=== PATIENT | female | born 1965 | race Caucasian/White ===

== ENCOUNTER 2025-09-06 05:37 | Emergency (ER) | payer OTHER, SELFPAY ==
--- NOTE | 2025-09-06 05:39 | EKG_ITS ---
[facility] Test Date: 2025-09-06 Pat Name: JEREMIAH GREY Department: Room: - Gender: Female Certified Physical Therapist Assistant: : [id number] Requested By: ED Temporary Provider Order Number: [id number] Reading MD: ED Temporary Provider Measurements Intervals [place] Rate: 75 P: 61 ND: 176 QRS: 30 QRSD: 81 T: 39 QT: 372 QTc: 417 Interpretive Statements SINUS RHYTHM No previous ECG available for comparison /store/S0/[id number].pdf
[2025-09-06 05:45] VITALS: BP 106/67; PULSE 80; RESP 16; TEMP 36.5; O2SAT 99
[2025-09-06 05:46] VITALS: BMI 26.6
--- NOTE | 2025-09-06 06:24 | PD.EDSYNC ---
ED Syncope RME/HPI General Chief Complaint: General Adult/Misc Complain Stated Complaint: LOW BP, PASSED OUT Time Seen by Provider: 09/06/25 06:13 Source: patient Arrival date/time: 09/06/25 05:37 60 year old female with no known medical history presents to the emergency room with a chief complaint of a near syncopal episode that occured last night. patient states she felt like passing out while in the restroom. patient states she took her BP afterwards and it was in the 80's systolic. Mode of arrival: ambulatory Limitations: no limitations Related Data Allergies Allergy/AdvReac Type Severity Reaction Status Date / Time No Known Allergies Allergy Verified 09/06/25 05:38 Review of Systems Review of Systems Systems Reviewed: All systems reviewed, normal except as documented Constitutional Constitutional: Reports system reviewed and no additional complaints, except as documented, Denies fatigue, Denies fever(s), Denies headache(s) and Denies weakness Eyes Eyes: Reports system reviewed and no additional complaints, except as documented, Denies blurry vision and Denies change in vision ENT Ears, Nose, Mouth, and Throat: Reports system reviewed and no additional complaints, except as documented, Denies otalgia, Denies headache(s), Denies nasal congestion, Denies throat swelling and Denies vertigo Cardiovascular Cardiovascular: Reports system reviewed and no additional complaints, except as documented, Denies chest pain, Denies dyspnea, Denies dyspnea on exertion, Denies lightheadedness, Denies orthopnea, Denies palpitations, Denies paroxysmal nocturnal dyspnea, Denies rapid heart rate and Denies slow heart rate Respiratory Respiratory: Reports system reviewed and no additional complaints, except as documented, Denies chest congestion, Denies cough, Denies dyspnea, Denies dyspnea on exertion and Denies wheezing Gastrointestinal Gastrointestinal: Reports system reviewed and no additional complaints, except as documented, Denies abdominal pain, Denies cramping, Denies nausea and Denies vomiting Genitourinary Genitourinary: Reports system reviewed and no additional complaints, except as documented Musculoskeletal Musculoskeletal: Reports system reviewed and no additional complaints, except as documented and Denies back pain Integumentary/Breasts Skin/Breast: Reports system reviewed and no additional complaints, except as documented and Denies wounds Neurologic Neurologic: Reports system reviewed and no additional complaints, except as documented, Denies confusion, Denies headache(s), Denies lack of coordination, Denies vertigo and Denies weakness Psychiatric Psychiatric: Reports system reviewed and no additional complaints, except as documented, Denies anxiety, Denies confusion, Denies depression, Denies paranoia, Denies suicidal ideation and Denies tactile hallucinations Endocrine Endocrine: Reports system reviewed and no additional complaints, except as documented, Denies fatigue and Denies palpitations Hematologic/Lymphatic Hematologic/Lymphatic: Reports system reviewed and no additional complaints, except as documented and Denies lymphadenopathy Allergic/Immunologic Allergic/Immunologic: Reports system reviewed and no additional complaints, except as documented, Denies throat swelling, Denies urticaria and Denies wheezing ED Exam General Limitations: Present no limitations General appearance: Present alert and in no apparent distress Head Head exam: Present atraumatic Eye Eye exam: Present normal appearance, PERRL and EOMI ENT ENT exam: Present normal exam, normal oropharynx and mucous membranes moist Neck Neck exam: Present normal inspection, full ROM and trachea midline Chest Chest inspection: Present normal inspection and symmetric chest wall rise Respiratory Respiratory exam: Present normal lung sounds bilaterally; Absent respiratory distress, wheezes, stridor, accessory muscle use or prolonged expiratory phase Cardiovascular Cardiovascular exam: Present regular rate, normal rhythm, normal heart sounds and +S2; Absent bradycardia, tachycardia, irregular rhythm, systolic murmur, diastolic murmur, rubs, gallop, clicks or JVD Abdominal Exam Abdominal exam: Present soft and normal bowel sounds; Absent tenderness Extremities Exam Extremities exam: Present normal inspection and full ROM Back Exam Back exam: Present normal inspection and full ROM Neurological Exam Neurological exam: Present alert, oriented X3 and CN II-XII intact Psychiatric Psychiatric exam: Present normal affect and normal mood Skin Skin exam: Present warm, dry, intact and normal color Course Quality Measures none Orders Category Date Time Status EKG (ED ONLY) *Do not use* NOW Care 09/06/25 05:39 Completed Orthostatic Vitals X1 Care 09/06/25 06:23 Active EKG (ED Only) Stat Exams 09/06/25 05:39 Draft B-Type Natriuretic Peptide Stat Lab 09/06/25 06:49 Completed CBC Stat Lab 09/06/25 06:49 Completed Comprehensive Metabolic Panel Stat Lab 09/06/25 06:44 Completed Drug Screen,Urine Stat Lab 09/06/25 07:16 Completed Free T3 Stat Lab 09/06/25 06:49 Completed Free T4 (Free Thyroxine) Stat Lab 09/06/25 06:44 Completed Magnesium Stat Lab 09/06/25 06:44 Completed Partial Thromboplastin Time Stat Lab 09/06/25 06:44 Completed Prothrombin Time with INR Stat Lab 09/06/25 06:44 Completed TSH [Thyroid Stimulating Hormone] Stat Lab 09/06/25 06:44 Completed Troponin I Stat Lab 09/06/25 06:44 Completed Urinalysis, C/S if Indicated Stat Lab 09/06/25 07:16 Completed Vital Signs Vital signs: Vital Signs Temperature 97.7 F 09/06/25 05:45 Pulse Rate 80 09/06/25 05:45 Respiratory Rate 16 09/06/25 05:45 Blood Pressure 106/67 09/06/25 05:45 Pulse Oximetry (%) 99 09/06/25 05:45 Oxygen Delivery Method Room Air 09/06/25 05:45 Syncope MDM Narrative MDM Narrative:: 60 year old female with no known medical history presents to the emergency room with a chief complaint of a near syncopal episode that occured last night. patient states she felt like passing out while in the restroom. patient states she took her BP afterwards and it was in the 80's systolic. Patient is hemodynamically stable and in no apparent distress. There is no tachycardia no tachypnea. Orthostatic vital signs were completed and were within normal limits. Physical examination shows a strong and regular rhythm S1 and S2 noted no clicks no murmurs no JVD. The patient has clear bilateral lung sounds. There is no lower extremity edema. CBC CMP were within normal limits. TSH free T4 were abnormal and showed subclinical hyperthyroidism. Patient states she is taking levothyroxine. Patient was educated to follow-up with her primary care provider for further management of her hyperthyroidism. EKG shows normal sinus rhythm at [address] deviation. Troponin and BNP were within normal limits Patient was discharged and educated to follow-up with primary care provider in the next 24 to 48 hours and return to the emergency room for any evidence of worsening signs or symptoms Patient data External records reviewed:: [facility] previous records Clinical information provided by:: patient Social determinants that could affect healthcare access:: none Patient has the following chronic illnesses:: No chronic illness How is presenting disease/condition affected by chronic disease/condition?: no chronic disease Evaluation data The following diagnostics were reviewed and interpreted by me:: lab results and radiology exam(s) Lab and/or radiology exams considered but not ordered:: Labs and radiology exams considered and ordered Interpretation Summary: N/A Medications / Prescriptions Medications or Prescriptions considered but not ordered:: N/A Medication administrations:: N/A Consultations Consultation(s) initiated? (list below): No Diagnosis Syncope Differential Diagnosis: syncope due to orthostatic hypotension, vasovagal syncope, dehydration and other (Subclinical hyperthyroidism) Most likely diagnosis given after review of the tests above:: Subclinical hypothyroidism Admission Indicated Admission indicated?: not indicated Admission Request Was there a request for admission?: No Disposition Plan Disposition Plan: Discharge Discharge Attestation Discharge Attestation: The patient and all family members were given an opportunity to ask questions and understood the discharge instructions. Discharge instructions specifically effects, indications for sooner follow up or return to the emergency department, and the expected course of current diagnosis. Patient condition: Stable Discharge Plan Plan Patient Disposition: HOME (Self Care) Discharge Disposition comment: Stable Prescriptions/Referrals Referrals: Nikki Ross NP [Primary Care Provider] - In 1 week Problem List Clinical Impression: Subclinical hyperthyroidism Patient/Caregiver Discharge Instructions Education Materials: ED Hyperthyroidism Additional Instructions: Please follow-up with your primary care provider in the next 24 to 48 hours The cause of your symptoms is due to your thyroid function. You have an overactive thyroid. You will need to follow-up with your primary care provider as a referral to an mortgage loan counselor may be indicated to start you on medication. For any evidence of worsening signs or symptoms return to the emergency room immediately Print Language: Japanese Stand Alone Forms: Nia Award Info., Work/School Release, Patient Portal Info Letter SARY/MACY Supervising Physician SARY/MACY Supervising Physician: Dr. Whitman
[2025-09-06 06:48] VITALS: BP 120/75; BP 121/69; BP 124/76; PULSE 69; PULSE 70
[2025-09-06 06:59] LABS: Basophils # (Auto) 0.1 Thou/mm3 (0.0-0.2); Basophils % (Auto) 1 % (0-2.5); Eosinophils # (Auto) 0.1 Thou/mm3 (0.0-0.5); Eosinophils % (Auto) 1 % (0-10); Hematocrit 44.1 % (36.0-46.0); Hemoglobin 14.5 g/dL (12.0-16.0); Immature Granulocytes Auto 0.02 Thou/mm3 (0.00-0.00); Lymphocytes # (Auto) 2.7 Thou/mm3 (1.0-4.8); Lymphocytes % (Auto) 22 % (10-50); Mean Corpuscular HGB Conc 32.9 g/dl (31.0-37.0); Mean Corpuscular Hemoglobin 30.2 pg (25.0-35.0); Mean Corpuscular Volume 92 fL (80-100); Monocytes # (Auto) 1.2 Thou/mm3 (0.0-0.8); Monocytes % (Auto) 10 % (0-12); Neutrophils # (Auto) 7.9 Thou/mm3 (1.8-7.7); Neutrophils % (Auto) 66 % (37-80); Nucleated Red Blood Cell # 0.00 Thou/mm3 (0.00-0.00); Nucleated Red Blood Cell % 0 /100 WBC (0); Platelet Count 355 Thou/mm3 (140-440); RDW Standard Deviation 45.1 fL (36.4-46.3); Red Blood Count 4.80 Miln/mm3 (4.00-5.20); White Blood Count 12.0 Thou/mm3 (3.6-11.0)
[2025-09-06 07:12] LABS: INR 1.0 (0.9-1.3); Partial Thromboplastin Time 25.4 Seconds (22.0-36.0); Prothrombin Time 10.7 Seconds (9.0-12.2)
[2025-09-06 07:16] LABS: B-Type Natriuretic Peptide 71 pg/mL (0-100)
[2025-09-06 07:21] LABS: Alanine Aminotransferase 23 U/L (10-49); Albumin, Serum 4.2 gm/dL (3.4-4.8); Albumin/Globulin Ratio 1.8 (1.2-2.2); Alkaline Phosphatase 111 U/L (46-116); Anion Gap 6 (7-16); Aspartate Amino Transferase 24 U/L (0-34); BUN/Creatinine Ratio 12 Ratio (12-20); Bilirubin,Total 0.4 mg/dL (0.3-1.2); Blood Urea Nitrogen 12 mg/dL (9-23); Calcium 9.4 mg/dL (8.3-10.6); Calcium (Corrected) 9.4 mg/dL (8.5-10.1); Carbon Dioxide 28.0 mMol/L (20.0-31.0); Chloride 108 mMol/L (98-107); Creatinine (Component) 1.0 mg/dL (0.6-1.3); Estimated Creatinine Clearance 64.5 mL/min (>60); Free T4 (Free Thyroxine) 1.96 ng/dL (0.89-1.76); Globulin 2.3 gm/dL (2.3-3.5); Glucose 107 mg/dL (74-106); Magnesium 2.0 mg/dL (1.6-2.6); Osmolality,Calculated 282 (275-295); Potassium 4.5 mMol/L (3.4-5.1); Sodium 142 mMol/L (136-145); Thyroid Stimulating Hormone 0.02 uIU/mL (0.55-4.78); Total Protein 6.5 gm/dL (5.7-8.2); Troponin I < 0.002 ng/mL (0.0-0.045); eGFR > 60 See Note
[2025-09-06 07:32] LABS: Collection Type, Urine Clean Catch
[2025-09-06 07:53] LABS: Amphetamine/Methamp Scrn,U Negative (Negative); Barbiturate Screen,Urine Negative (Negative); Benzodiazepines Screen,Urine Negative (Negative); Benzoylecgonine Screen, Ur Negative (Negative); Bilirubin,Urine Negative (Negative); Blood,Urine Negative (Negative); Color,Urine Yellow (Lt Yel-Yel); Culture Indicated,Urine Not Indicated; Fentanyl Screen,Urine Negative (Negative); Glucose, Urine Negative (Negative); Ketones,Urine Negative (Negative); Leukocyte Esterase,Urine Negative (Negative); Nitrite,Urine Negative (Negative); Opiate Screen,Urine Negative (Negative); PH,Urine 6.0 (5.0-7.0); Protein,Urine 1+ (Neg - Trace); RBC,Urine 5 /hpf (0-3); Specific Gravity,Urine 1.030 (1.001-1.035); Squamous Epithelial Cell,Urine 1 /hpf (0-5); THC Screen,Urine Negative (Negative); Uric Acid Crystals,Urine 3+; Urobilinogen,Urine 2.0 mg/dL (0.0-1.0); WBC,Urine 2 /hpf (0-5)
[2025-09-06 07:57] LABS: Clarity,Urine Hazy (Clear/Hazy)
[2025-09-06 08:14] LABS: Free T3 3.2 pg/mL (2.3-4.2)
== END 2025-09-06 09:13 | disposition home or self-care (01) ==
PROVIDERS: Nurse Practitioner Family; Emergency Provider Emergency Medicine; PCP Nurse Practitioner Family
DX: E05.90 Thyrotoxicosis, unspecified without thyrotoxic crisis or storm (principal)
CPT/HCPCS: 36415; 80053; 80307; 81001; 83735; 83880; 84439; 84443; 84481; 84484; 85025; 85610; 85730; 93005; 99282